=== PATIENT | female | born 1965 | race Caucasian/White ===

== ENCOUNTER 2017-01-28 10:01 | Emergency (ER) | payer OTHER ==
[~2017-01-28] VITALS: Ht 170.2 cm; Wt 57.0 kg
[2017-01-28] VITALS (8 sets, daily range): BP systolic 91–142; BP diastolic 53–79; PULSE 65–92; RESP 16; TEMP 97.6; O2SAT 97–100
[~2017-01-28 10:01] MED LIST: CYCL-36 PO; NAPR500 PO
[2017-01-28] MEDS ORDERED: KETO75 PO (10:19)
[2017-01-28] MEDS ORDERED: GABA100C4 PO (10:19)
[2017-01-28] MEDS ORDERED: SODIUM CHLOR 0.9% 1000 ML INJ 1,000 ML IV ONE ×2 (10:23→11:45)
--- NOTE | 2017-01-28 10:26 | PD ---
HPI Chief Complaint: Abdominal Pain Time Seen by Provider: 10:23 Travel History International Travel<30 days: No Contact w/Intl Traveler<30days: No Traveled to known affect area: No History of Present Illness HPI Patient presents with complaints of right flank pain that started yesterday. Increased intensity since this morning. Denies any history of kidney stones. Radiating to the right groin. Colicky in nature. Positive nausea without vomiting. History of appendectomy and hysterectomy. PFSH Past Medical History Hx Anticoagulant Therapy: No Diabetes: No Diminished Hearing: No Migraines: Yes Tetanus Vaccination: > 5 Years Influenza Vaccination: No ?: Not Menopausal: Yes Past Surgical History Appendectomy: Yes Hysterectomy: Yes Social History Alcohol Use: Yes (RARE) Tobacco Use: No Substance Use: No Allergies-Medications (Allergen,Severity, Reaction): Coded Allergies: No Known Allergies (Verified Adverse Reaction, Unknown, 01/28/17) Reported Meds & Prescriptions Reported Meds & Active Scripts Active Zofran (Ondansetron HCl) 4 Mg Tab 4 Mg PO Q6HR PRN Hydrocodone-Acetaminophen 5-325 mg Tab 1 Tab PO Q4H PRN Flomax (Tamsulosin HCl) 0.4 Mg Cap 0.4 Mg PO HS Reported Ketoprofen 75 Mg Cap 75 Mg PO TID Gabapentin 100 Mg Cap Unknown Dose PO DIRECTED Review of Systems General / Constitutional: No: Fever Eyes: No: Visual changes HENT: No: Headaches Cardiovascular: No: Chest Pain or Discomfort Respiratory: No: Shortness of Breath Gastrointestinal: Positive: Nausea, Abdominal Pain Genitourinary: Positive: Flank Pain, No: Dysuria Musculoskeletal: No: Pain Skin: No Rash Neurologic: No: Weakness Psychiatric: No: Depression Endocrine: No: Polydipsia Hematologic/Lymphatic: No: Easy Bruising Physical Exam Narrative GENERAL: Well-nourished, well-developed patient. SKIN: Focused skin assessment warm/dry. HEAD: Normocephalic. EYES: No scleral icterus. No injection or drainage. NECK: Supple, trachea midline. No JVD or lymphadenopathy. CARDIOVASCULAR: Regular rate and rhythm without murmurs, gallops, or rubs. RESPIRATORY: Breath sounds equal bilaterally. No accessory muscle use. GASTROINTESTINAL: Abdomen soft, non-tender, nondistended. MUSCULOSKELETAL: No cyanosis, or edema. BACK: Nontender without obvious deformity. No CVA tenderness. Data Data Last Documented VS Vital Signs Date Time Temp Pulse Resp B/P (MAP) Pulse Ox O2 Delivery O2 Flow Rate FiO2 01/28/17 11:39 73 16 115/67 (83) 100 Room Air 01/28/17 10:04 97.6 Orders Orders Complete Blood Count With Diff (01/28/17 10:23) Comprehensive Metabolic Panel (01/28/17 10:23) Urinalysis - C+S If Indicated (01/28/17 10:23) Ct Abd/Pel W/O Iv Contrast (01/28/17 10:23) Ecg Monitoring (01/28/17 10:23) Iv Access Insert/Monitor (01/28/17 10:23) Ketorolac Inj (Toradol Inj) (01/28/17 10:30) Ondansetron Inj (Zofran Inj) (01/28/17 10:30) Sodium Chloride 0.9% Flush (Ns Flush) (01/28/17 10:30) Sodium Chlor 0.9% 1000 Ml Inj (Ns 1000 M (01/28/17 10:23) Hydromorphone Pf Inj (Dilaudid Pf Inj) (01/28/17 10:30) Hydromorphone Pf Inj (Dilaudid Pf Inj) (01/28/17 11:45) Sodium Chlor 0.9% 1000 Ml Inj (Ns 1000 M (01/28/17 11:45) Labs Laboratory Tests Test 01/28/17 10:30 White Blood Count 5.5 TH/MM3 Red Blood Count 4.75 MIL/MM3 Hemoglobin 13.6 GM/DL Hematocrit 40.7 % Mean Corpuscular Volume 85.6 FL Mean Corpuscular Hemoglobin 28.6 PG Mean Corpuscular Hemoglobin Concent 33.4 % Red Cell Distribution Width 13.1 % Platelet Count 189 TH/MM3 Mean Platelet Volume 9.2 FL Neutrophils (%) (Auto) 44.8 % Lymphocytes (%) (Auto) 43.0 % Monocytes (%) (Auto) 8.1 % Eosinophils (%) (Auto) 3.0 % Basophils (%) (Auto) 1.1 % Neutrophils # (Auto) 2.4 TH/MM3 Lymphocytes # (Auto) 2.4 TH/MM3 Monocytes # (Auto) 0.4 TH/MM3 Eosinophils # (Auto) 0.2 TH/MM3 Basophils # (Auto) 0.1 TH/MM3 CBC Comment DIFF FINAL Differential Comment Blood Urea Nitrogen 20 MG/DL Creatinine 0.84 MG/DL Random Glucose 112 MG/DL Total Protein 7.8 GM/DL Albumin 4.2 GM/DL Calcium Level 8.8 MG/DL Alkaline Phosphatase 52 U/L Aspartate Amino Transf (AST/SGOT) 13 U/L Alanine Aminotransferase (ALT/SGPT) 23 U/L Total Bilirubin 0.7 MG/DL Sodium Level 140 MEQ/L Potassium Level 3.8 MEQ/L Chloride Level 104 MEQ/L Carbon Dioxide Level 26.1 MEQ/L Anion Gap 10 MEQ/L Estimat Glomerular Filtration Rate 71 ML/MIN [facility] Medical Decision Making Medical Screen Exam Complete: Yes Emergency Medical Condition: Yes Differential Diagnosis Nephrolithiasis, pyelonephritis, UTI, cystitis Narrative Course Assessment and plan discussed with patient and at bedside. Last 72 hours Impressions Abdomen/Pelvis CT 01/28/17 1023 Signed Impressions: Service Date/Time: Saturday, January 28, 2017 11:13 - CONCLUSION: 1. 3 mm stone at the right ureterovesical junction causing mild to moderate obstructive uropathy. The stone can be faintly seen on the original small engine mechanic radiograph. 2. Nonobstructing stones in both kidneys as above. 3. Stable benign hepatic cysts. Alan Thorpe MD Diagnosis Primary Impression: Nephrolithiasis Patient Instructions: Narcotic given in the ED, General Instructions Additional Instructions: Fluids fluids fluids. Medications as prescribed. Encouraged a cranberry supplement. Encouraged to follow-up with urology. Return to emergency room with any onset of new symptoms. Med/Other Pt SpecificInfo: Prescription(s) given Scripts Ondansetron (Zofran) 4 Mg Tab 4 MG PO Q6HR Y for NAUSEA OR VOMITING, #30 TAB 0 Refills Prov: Manuel Samuel MD 01/28/17 Hydrocodone-Acetaminophen (Hydrocodone-Acetaminophen) 5-325 mg Tab 1 TAB PO Q4H Y for PAIN, #30 TAB 0 Refills Prov: Manuel Samuel MD 01/28/17 Tamsulosin (Flomax) 0.4 Mg Cap 0.4 MG PO HS for Manage Prostate Problems, #20 CAP 0 Refills Prov: Manuel Samuel MD 01/28/17 Disposition: 01 DISCHARGE HOME Condition: Good Manuel Samuel MD Jan 28, 2017 10:26
[2017-01-28] MEDS ORDERED: ONDANSETRON HCL 4 MG/2 ML VIAL IV PUSH ONE ×2 (10:30→13:00)
[2017-01-28] MEDS ORDERED: SODIUM CHLORIDE 0.9% FLUSH 10 ML FLUSH IVF PRN (10:30)
[2017-01-28] MEDS ORDERED: HYDROmorphone HCL PF 1 MG/ML VIAL IV PUSH ONE ×2 (10:30→11:45)
[2017-01-28] MEDS ORDERED: KETOROLAC TROMETHAMINE 30 MG/ML (IVP) VIAL IV PUSH ONE (10:30)
[2017-01-28 10:39] LABS: AUTOMATED NEUTROPHIL # 2.4 TH/MM3 (1.8-7.7); BASOPHIL # 0.1 TH/MM3 (0-0.2); BASOPHIL % 1.1 % (0.0-2.0); EOSINOPHIL # 0.2 TH/MM3 (0-0.4); HEMATOCRIT 40.7 % (35.0-46.0); HEMO FLAGS DIFF FINAL; LYMPHOCYTE # 2.4 TH/MM3 (1.0-4.8); MEAN CELL VOLUME 85.6 FL (80.0-100.0); MEAN CORPUSCULAR HEMOGLOBIN 28.6 PG (27.0-34.0); MEAN CORPUSCULAR HGB CONC 33.4 % (32.0-36.0); MONO % 8.1 % (0.0-8.0); NEUT % 44.8 % (16.0-70.0); PLATELET COUNT 189 TH/MM3 (150-450); RED BLOOD COUNT 4.75 MIL/MM3 (4.00-5.30); RED CELL DISTRIBUTION WIDTH 13.1 % (11.6-17.2); WHITE BLOOD COUNT 5.5 TH/MM3 (4.0-11.0)
[2017-01-28 10:47] LABS: CHLORIDE 104 MEQ/L (98-107); POTASSIUM 3.8 MEQ/L (3.5-5.1); SODIUM (NA) 140 MEQ/L (136-145)
[2017-01-28 10:51] LABS: ANION GAP 10 MEQ/L (5-15); BICARBONATE 26.1 MEQ/L (21.0-32.0); BLOOD UREA NITROGEN 20 MG/DL (7-18)
[2017-01-28 10:54] LABS: ALT (GPT) 23 U/L (10-53); AST (GOT) 13 U/L (15-37); GLOMERULAR FILTRATION RATE 71 ML/MIN (>89)
[2017-01-28 10:55] LABS: TOTAL BILIRUBIN ADULT 0.7 MG/DL (0.2-1.0)
[2017-01-28 10:57] LABS: ALKALINE PHOSPHATASE 52 U/L (45-117)
--- NOTE | 2017-01-28 11:34 | RADRPT ---
EXAM DATE/TIME: 01/28/2017 11:13 [facility] COMPARISON: CT ABDOMEN & PELVIS W CONTRAST, July 06, 2014, 9:13. INDICATIONS : Right flank pain. Evaluate for renal calculi. ORAL CONTRAST: No oral contrast ingested. RADIATION DOSE: 6.81 CTDIvol (mGy) ; Patient motion MEDICAL HISTORY : None SURGICAL HISTORY : Hysterectomy. Appendectomy. ENCOUNTER: Initial ACUITY: 2 days PAIN SCALE: 7/10 LOCATION: Right flank TECHNIQUE: Volumetric scanning of the abdomen and pelvis was performed. Using automated exposure control and ad justment of the mA and/or kV according to patient size, radiation dose was kept as low as reasonably achievable to obtain optimal diagnostic quality images. DICOM format image data is available electro nically for review and comparison. FINDINGS: LOWER LUNGS: The visualized lower lungs are clear. LIVER: Scattered cysts of the liver measuring up to 2 cm in size are unchanged. SPLEEN: Normal size without lesion. PANCREAS: Within normal limits. KIDNEYS: There is a 3 mm stone of the right ureterovesical junction causing mild to moderate hydronephrosis an d hydroureter. There is a 1 mm nonobstructing stone of the right mid zone. On the left there is a 4 m m upper pole and a 2 mm lower pole stone, both nonobstructing. No left ureteral calculus. ADRENAL GLANDS: Within normal limits. VASCULAR: There is no aortic aneurysm. BOWEL/MESENTERY: The stomach, small bowel, and colon demonstrate no acute abnormality. There is no free intraperitone al air or fluid. ABDOMINAL WALL: Within normal limits. RETROPERITONEUM: There is no lymphadenopathy. BLADDER: No wall thickening or mass. REPRODUCTIVE: Within normal limits. INGUINAL: There is no lymphadenopathy or hernia. MUSCULOSKELETAL: No acute bony abnormality demonstrated. CONCLUSION: 1. 3 mm stone at the right ureterovesical junction causing mild to moderate obstructive uropathy. The stone can be faintly seen on the original director of district office radiograph. 2. Nonobstructing stones in both kidneys as above. 3. Stable benign hepatic cysts. Alan Thorpe MD on January 28, 2017 at 11:28 Board Certified Radiologist. This report was verified electronically.
[2017-01-28] MEDS ORDERED: TAMS5CAP PO (11:41)
[2017-01-28] MEDS ORDERED: ZOFR4TAB PO (11:41)
[2017-01-28] MEDS ORDERED: HYDR-3516 PO (11:41)
[2017-01-28 12:19] LABS: BLOOD, URINE TRACE (NEG); GLUCOSE,URINE NEG (NEG); KETONE, URINE NEG (NEG); NITRITE,URINE NEG (NEG)
[2017-01-28 12:20] LABS: METHOD OF COLLECTION CLEAN CATCH; URINE COLOR STRAW (YELLW/STRAW)
[2017-01-28 12:23] LABS: RBC, URINE 0-3 /hpf (0-3)
[2017-01-28 12:24] LABS: COMMENT (UR) CULTURE INDICATED; CULTURE IF INDICATED CULTURE INDICATED
[2017-01-28] MEDS ORDERED: SODIUM CHLORID 0.9% 500 ML INJ 500 ML IV ONE (13:45)
== END 2017-01-28 15:06 | disposition home or self-care (01) ==
LOC: PHED 10:01
DX: N20.0 Calculus of kidney (principal); R11.0 Nausea
CPT/HCPCS: 74176; 80053; 81001; 85025; 87086; 96361; 96374; 96375; 96376; 99285; J1170; J1885; J2405; J7030; J7040